=== PATIENT | female | born 1950 | race Caucasian/White ===

== ENCOUNTER 2017-04-09 10:46 | Emergency (ER) | payer OTHER, MEDICARE ==
[~2017-04-09] VITALS: Ht 172.7 cm; Wt 78.0 kg
--- NOTE | 2017-04-09 11:17 | Urgent Treatment Center Report ---
History of Present Issue Date/Time Seen by Provider 04/09/17 1117 Visit Reason Pt arrived:Wheelchair Presenting Problem:PT STATES SHE WAS WALKING DOWN HER BASEMENT STEPS WHEN SHE STEPPED DOWN AND FELT A POP IN HER LT KNEE AND LOST BALANCE Location if Accident:Home Onset of symptoms date/time:04/09/17 or onset unknown for: Have you (or family members/close friends) recently traveled outside the [place]? N If Yes, where/when: Have you had exposure to infectious disease within the past month? TB? Other? Specify: c/o left knee pain. Reports walking down basement steps this morning, around 0900, when as she stepped w/ left foot, left knee "popped" and she lost her balance. Denies fall. "just like it gave out". Pain primarily posterior knee. Currently takes NSAIDs and celebrex. Hasn't taken or tried anything new for symptoms. Denies N/T. Too painful to ambulate now. Pt declined offer to treat pain in clinic. "just want to be sure not broken". Source patient Exam Limitations clinical condition (pain) ALLERGIES Coded Allergies: No Known Drug Allergies (NKDA) (06/20/12) History Medical History General Angina: No CA: No Hypertension? No Hyperlipidemia? No CHF? No DVT? No PE? No COPD? No Asthma? No Anemia? No GERD? No Gastric ulcers? No GI Bleed? No Hernia? No Thyroid Problems? No Hypothyroidism? No CVA? No Seizures? No Diabetes? No Renal Insuffiency? No UTI? No Stones? No BPH? No GB Disease: No Nephritic Syndrome? No Asplenia? No Hepatitis? No Sickle Cell Disease? No Migraines? No Cataracts? No Glaucoma? No MRSA? No TB? No Cancer? Yes Site: SKIN Immunization HX DT/Tetanus > 10 YRS Flu THISFLUSEA Pneumonia Received In Past Surgical Hx Previous Surgery?Y BLADDER TUCK 12/26/04 APPY Family History Family HX Diabetes No CAD Yes Hypertension No Hyperlipidemia No Cancer Yes TB No Social History Smoking Hx Smoker: Former Smoker Tobacco: No Type Cigarettes Alcohol Alcohol: No Review of Systems All Other Systems Reviewed and Negative Musculoskeletal see HPI, denies joint swelling, denies other (pain elsewhere) Skin denies change in color, denies lesions, denies lumps Psychiatric/Neurological see HPI Physical Exam Vital Signs Vital Signs Date Time Temp Pulse Resp B/P Pulse O2 O2 Flow FiO2 Ox Delivery Rate 04/09 1155 97.9 77 18 130/79 99 04/09 1059 97.9 77 18 130/79 99 General Appearance no apparent distress, seated in WC Respiratory Status No: respiratory distress. Cardiovascular no peripheral edema Peripheral Pulses Pulses normal Yes (DP/PT) Back gait abnormality (refusing to bear wt left) Extremities normal inspection (left knee), limited range of motion (left knee), moderate tenderness left posterior knee only Strength 4 Lower Ext (L), 5 Lower Ext (R) Neurologic alert, no motor/sensory deficits, oriented x 3 Skin normal color, warm/dry Medical Decision Making LABS/Meds/Orders Pt receiving controlled substance in ED? No Results/Orders Orders Procedure Date/time Status STABILIZE JOINT 04/09 1151 Active XRAY/CT/US XRAY/CT/US XRAY knee (left) XR interpretation by reviewed by me, discussed w/radiologist (read report) Departure Departure Time of Disposition 1151 Disposition DC Home or Self Care(routine) Clinical Impression Primary Impression: Left knee sprain Qualifiers: Encounter type: initial encounter Involved ligament of knee: posterior cruciate ligament Qualified Code: S83.522A - Sprain of posterior cruciate ligament of left knee, initial encounter Condition STABLE Referrals Wilber CHUNG,A.C. (Family) Follow up with Dr. Merino for new or worsening symptoms or no improvement in 2-3 days and if necessary, he will then refer you to ortho. Patient Instructions DI for Knee Sprain, How To Perform RICE (Rest, Ice, Compress, Elevate), How to Use a Knee Immobilizer, How to Use Crutches Additional Instructions * weight bearing as tolerated. If it hurts, don't do it. * Rest * ice 15-20 mins 3-4 times a day * knee immobilizer for support and swelling unless in shower. Be sure not too tight but not too loose either * Elevate as discussed as much as possible to help reduce swelling and therefore , pain * continue your NSAIDs for pain and inflammation. If you need something more, you can take tylenol every 4 hours as needed as long as your primary care provider has told you it is ok to take both. Discharge Counseling Counseled pt/family regarding diagnosis, test results, medications/RX, home care, follow up needs at 2310
--- NOTE | 2017-04-09 11:37 | RADIOLOGY REPORT PS360 ---
KNEE-3 VIEWS-LT HISTORY: Pain INJURED LEFT KNEE WHILE WALKING DOWN THE STAIRS AT HOME ORDERING PHYSICIAN: PAGE LUU APRN PATIENT AGE: 66 years COMPARISON: None FINDINGS: No acute fracture or dislocation is evident. Minimal osteoarthritic changes involving patellofemoral joint. There are some minimal cystic changes involving the proximal tibia at the talofibular joint consistent with subarticular cyst. IMPRESSION 1. No acute finding. 2. Minimal osteoarthritic change
[2017-04-09 11:55] VITALS: BP 130/79
--- OUTSIDE RECORDS SUMMARY | 2017-05-02 03:20 | External Medical Summary Rpt ---
Author Author , ELVIRA FELIX Address Unknown Phone [email or web address] Immunization Name Date Rout CVX Reac Dose Comm Prov Is Faci e tion ent ider Refu lity Give sed n Pneu 05-1 109 999 Hist D203 No D203 moco 8-20 oric 45 45 ccal 16 al , UF Info rmat ion - Sour ce Unsp ecif ied Td 03-0 9 999 Hist H149 No H149 (pablo 6-19 oric lt), 97 al Info adso rmat rbed ion - Sour ce Unsp ecif ied
--- OUTSIDE RECORDS SUMMARY | 2017-05-02 03:20 | External Medical Summary Rpt ---
Author Author ELVIRA Sedrick, [employer] Organization [employer] Address Unknown Phone Unavailable Results MM MOBILE MAMMO DIGITAL SCREEN W CAD VILLA Observa Value Referen Units Interpr Notes Date tion ce etation Range Procedu No No No No Feb 06 re:MM informa informa informa informa 2012 MOBILE tion in tion in tion in tion in 2:00 PM MAMMO source source source source DIGITAL data data data data SCREEN W CAD VILLA\.br \Reason for exam: screeni ng (asympt omatic) .\.br\M M MOBILE MAMMO DIGITAL SCREEN W CAD VILLA\.br \Bilate ral CC and MLO view(s) were taken.\ .br\The re are scatter ed fibrogl andular densiti es. Compare d to prior studies \.br\th e most recent being 11-11-07 \.br\IM PRESSIO N: Negativ e (ACR-Ca tegory- 1)\.br\ RECOMME NDATION :\.br\R outine screeni ng mammogr am in 1 year.\. br\* The patient with a palpabl e abnorma lity, unexpla ined by breast\ .br\anai ging, should be managed on clinica l basis by the attendi ng physici an.\.br \* Breast imaging has a false negativ e rate of 15%.\.b r\* The patient was notifie d by mail of the results of this examina tion.\. br\*The patient 's informa tion was entered into a [employer] [facility] system with a\.br\t arget\. br\due date for the next mammogr am.\.br \The mammogr am was reviewe d by a Radiolo gist and CAD.
--- OUTSIDE RECORDS SUMMARY | 2017-05-02 03:20 | External Medical Summary Rpt ---
[...] 's informa tion was entered into a [employer] system with a\.br\t arget\. br\due date for the next mammogr am.\.br \The mammogr am was reviewe d by a Radiolo gist and CAD.
--- OUTSIDE RECORDS SUMMARY | 2017-05-02 03:20 | External Medical Summary Rpt ---
Author Author ELVIRA Address Unknown Phone [email or web address] Purpose Continuity of Care Document - 02-06-2013 through 2016 Problems Code Diagnosis DOS Provider Status Z12.31 ENCNTR SCREEN MAMMOGRAM FOR MALIGNANT NEOPLASM OF BREAST
--- OUTSIDE RECORDS SUMMARY | 2017-05-02 03:20 | External Medical Summary Rpt ---
Author Author [employer] Organization [employer] Address Unknown Phone Unavailable Purpose Continuity of Care Document - through 2016
--- OUTSIDE RECORDS SUMMARY | 2017-05-02 03:20 | External Medical Summary Rpt ---
Author Author ELVIRA Address Unknown Phone [email or web address] Purpose Continuity of Care Document - 02-06-2013 through 2016 Problems Code Diagnosis DOS Provider Status Z12.31 ENCNTR SCREEN MAMMOGRAM FOR MALIGNANT NEOPLASM OF BREAST
--- OUTSIDE RECORDS SUMMARY | 2017-05-02 03:20 | External Medical Summary Rpt ---
Author Author , ELVIRA [employer] Address Unknown Phone [email or web address] Immunization Name Date Rout CVX Reac Dose [...]
== END 2017-04-09 12:05 | disposition home or self-care (01) ==
LOC: UTC 10:46
PROC: 2W3MX1Z Immobilization of Left Lower Extremity using Splint (ICD-10-PCS; principal; 2017-04-09)
DX: S83.522A Sprain of posterior cruciate ligament of left knee, initial encounter (principal); W18.49XA Other slipping, tripping and stumbling without falling, initial encounter; Y92.008 Other place in unspecified non-institutional (private) residence as the place of occurrence of the external cause

== ENCOUNTER → 2017-04-18 | Outpatient (CLI) | payer MEDICARE, OTHER ==
--- NOTE | 2017-04-19 08:23 | RADIOLOGY REPORT PS360 ---
MRI-LOW EXT ANY JOINT W/O-LT HISTORY: Posterior left knee pain with popping sound POSTERIOR LT KNEE PAIN ORDERING PHYSICIAN: Katrin Bueno APRN PATIENT AGE: 66 years COMPARISON: 04/09/2017 radiograph TECHNIQUE: Standard multiplanar multiecho sequences are performed without contrast. FINDINGS: The cruciate ligaments, collateral ligaments, patellar tendon, and quadriceps tendon appear intact. No evidence of meniscal tear. There are mild osteoarthritic changes of the patellofemoral joint. There is mild thinning of the patellar cartilage suggesting mild chondromalacia patella. There is also mild lateral translation of the patella with a shallow patellar groove. A small knee joint effusion. A Duron's cyst is also present which measures 2.7 cm cephalad to caudad. Mild amount of edema is noted about the soft tissues of the knee. No acute fracture. There are some small subarticular cyst noted along the lateral aspect of the tibia at the tibiofibular joint as seen on the radiograph. IMPRESSION: 1. No internal arrangement. 2. Mild chondromalacia patella with minimal lateral subluxation of the patella along with a shallow trochlear groove 3. Small knee joint effusion with small Duron's cyst 4. Mild osteoarthritic change of the patellofemoral joint. Small subarticular cysts are present at the tibial fibular joint
== END ==
LOC: RAD 09:43
DX: M25.562 Pain in left knee (principal)